=== PATIENT | male | born 1980 | race Caucasian/White ===

== ENCOUNTER 2018-01-17 11:52 | Day surgery (SDC) | payer OTHER ==
[2018-01-10 11:15] VITALS: BMI 25.7
--- NOTE | 2018-01-17 08:27 | P.GSHP ---
History of Present Illness H&P Date: 01/17/18 CHIEF COMPLAINT: Inguinal hernia, right. HISTORY OF PRESENT ILLNESS: The patient is a 52-year-old male who presents with a history of swelling and pain along the right groin. He's noted increased swelling including pain of the area. Now he presents for repair of his inguinal hernia. PAST MEDICAL HISTORY: Please see list. PAST SURGICAL HISTORY: Please see list. MEDICATIONS: Please see list. ALLERGIES: Please see list. SOCIAL HISTORY: No illicit drug use FAMILY HISTORY: No reports of Crohn disease or ulcerative colitis. REVIEW OF ORGAN SYSTEMS: CONSTITUTIONAL: No reports of fevers or chills. No reports of weight loss despite prior attempts. GI: Denies any blood in stools or constipation. PHYSICAL EXAM: VITAL SIGNS: Stable GENERAL: Well-developed pleasant male in no acute distress. HEENT: No scleral icterus. Extraocular movements grossly intact. Moist buccal mucosa. NECK: Supple without lymphadenopathy. CHEST: Unlabored respirations. Equal bilateral excursions. CARDIOVASCULAR: Regular rate and rhythm. Distal 2+ pulses. ABDOMEN: Soft, nondistended. No peritoneal signs. Palpable defect of the right groin. MUSCULOSKELETAL: No clubbing, cyanosis, or edema. ASSESSMENT: 1. Inguinal hernia, right PLAN: 1. Recommend proceeding with a robotic inguinal repair with mesh with possible bilateral approach. 2. Benefits and risks of surgical intervention was discussed including possibility of open technique. 3. DVT prophylaxis. 4. Antibiotic prophylaxis. Past Medical History Past Medical History: No Reported History Additional Past Medical History / Comment(s): Ing. Hernia History of Any Multi-Drug Resistant Organisms: None Reported Past Surgical History: Ear Surgery Additional Past Surgical History / Comment(s): tubes in ears as child; wisdom teeth extraction Past Anesthesia/Blood Transfusion Reactions: No Reported Reaction Smoking Status: Current every day smoker - Past Family History Mother Family Medical History: No Reported History Medications and Allergies Home Medications Medication Instructions Recorded Confirmed Type No Known Home Medications 01/10/18 01/10/18 History Allergies Allergy/AdvReac Type Severity Reaction Status Date / Time No Known Allergies Allergy Verified 01/10/18 11:10
[~2018-01-17 11:52] MED LIST: DEXAMETHASONE SOD PHOSPHATE 10 MG/ML 1 ML VIAL IV ONE; HEPARIN SODIUM,PORCINE 5,000 UNIT/ML 1 ML VIAL SQ ONE; LIDOCAINE 1% 20 ML VIAL (10MG/ML) FOR IV START INTRADERMA PRN; MIDAZOLAM 2 MG/2 ML VIAL IV PRN; ONDANSETRON 4 MG/2 ML VIAL IVP ONE; ceFAZolin IN SWFI 2 GM/20 ML SYRINGE IVP ONE; fentaNYL (PF) 50 MCG/ML 2 ML AMP IV PRN
[2018-01-17] MEDS: LACTATED RINGERS 1,000 ML IV SCH (13:39)
[2018-01-17] MEDS ORDERED: LIDOCAINE 1% 20 ML VIAL (10MG/ML) FOR IV START INTRADERMA ONE (13:39)
[2018-01-17] MEDS ORDERED: HYDROmorphone (PF) 1 MG/ML ONE (14:33)
[2018-01-17] MEDS ORDERED: SUCCINYLCHOLINE CHLORIDE 100 MG/5 ML SYR IV ONE (14:33)
[2018-01-17] MEDS ORDERED: LIDOCAINE 1% INJ 10MG/ML (20 ML MDV) ONE (14:33)
[2018-01-17] MEDS ORDERED: KETOROLAC 30 MG/ML 1 ML VIAL ONE (14:33)
[2018-01-17] MEDS ORDERED: MIDAZOLAM 2 MG/2 ML VIAL ONE (14:33)
[2018-01-17] MEDS ORDERED: fentaNYL (PF) 50 MCG/ML 2 ML AMP ONE (14:33)
[2018-01-17] MEDS ORDERED: PROPOFOL 10 MG/ML 20 ML VIAL IV ONE (14:33)
[2018-01-17] MEDS ORDERED: ROCURONIUM BROMIDE 10 MG/ML 10 ML VIAL IV ONE (14:33)
[2018-01-17] MEDS ORDERED: BUPIVACAIN-EPI 0.5%-1:200,000 30 ML VIAL SQ ONE ×2 (14:49→14:54)
--- NOTE | 2018-01-17 15:58 | P.OP ---
Date of Procedure: 01/17/18 Description of Procedure: SURGEON: ANUSHA FRANCO MD PREOPERATIVE DIAGNOSES: 1. Initial right inguinal hernia. POSTOPERATIVE DIAGNOSES: 1. Initial right inguinal hernia. OPERATION: 1. Robotic-assisted [employer] laparoscopic right inguinal hernia repair with mesh, 11.[address] ANESTHESIA: General with local anesthetic ESTIMATED BLOOD LOSS: 5 mL. SPECIMENS REMOVED: Right inguinal hernia sac COMPLICATIONS: None. INDICATIONS: The patient is a 37-year-old gentleman who presents with history of right groin pain. Now presents for definitive surgical intervention. Laparoscopic versus open and robotic approaches were discussed. Benefits and risks including bleeding, infection, injury to the vas deferens as well as sterility and chronic groin pain were reviewed. Placement of mesh was also described. Informed consent was obtained. DESCRIPTION: In the preoperative area, the patient was marked with indelible marker along the inguinal hernia. The patient was brought to the operating room and initially laid in supine position. The abdomen had been prepped and draped in standard sterile fashion. Ioban draping was also placed. Prior to incision, a timeout protocol was confirmed with surgical team regarding patient's name including procedures to be performed and location along the right groin. Initial positioning for the robotic assisted ports were selected whereby 20 cm superior to the target anatomy, 0 degree 5 mm laparoscopic trocar entry was performed at the left upper quadrant. The abdomen was insufflated to 15 mmHg which he had tolerated well. Diagnostic laparoscopy demonstrated a direct inguinal hernia along the right groin. Next, along the epigastrium, 8 mm robot trocar was placed. An 8-mm robotic trocar was placed under direct visualization at the right upper quadrant. An 8 mm port was placed at the left upper quadrant. All trocars were positioned between 8 to 10-cm apart from each other. The [employer] XI robot was primed, draped, prepared for docking along the left side of the patient. I then went to the [employer] console. The administrative assistant data entry was at bedside for exchange of the robot arms and equipment. No hernia was identified along the left groin. The right inguinal hernia sac was evaginated whereby the peritoneum was scored using Endo scissors with cautery. Once completely reduced into the abdominal cavity, the peritoneal sac of the hernia was stripped along a direct inguinal hernia. The sac was resected and then passed off for further pathological analysis. The size of the hernia defect was 2 cm with intraoperative films obtained. Using a 2-0 VLOC, the peritoneal defect of the right inguinal hernia site was closed using a running suture. The defect was found to be completely closed with complete reduction of the right direct inguinal hernia was confirmed. As an onlay, an 11.[address] mesh by [employer] was initially cut in half and entered into the abdominal cavity via the 8 mm trocar. The mesh was tacked to the pelvis using 2-0 VLOC 9-inch length sutures. The robot was undocked from the patient's bedside. I then rescrubbed into the case. Insufflation was released from the abdominal cavity and all instruments were removed from the abdominal cavity. The rest of incisions were reapproximated using 4-0 Monocryl in a running subcuticular fashion. Local anesthetic was placed along the incision including for a right groin block. Incisions were cleansed using dilute hydrogen peroxide. Liquid glue was applied to the skin. At the end of the procedure, the needle, sponge and instrument counts had been verified correct by the preparatory technician. The patient had tolerated the procedure well and was taken to the postanesthesia care unit in stable condition. Console time 29 minutes Plan - Discharge Summary New Discharge Prescriptions: No Action No Known Home Medications Discharge Medication List No Known Home Medications 01/10/18 [History]
[2018-01-17 16:14] VITALS: TEMP 97.8
[2018-01-17] MEDS ORDERED: TAMSULOSIN 0.4 MG CAP.ER.24H PO STA (16:33)
[2018-01-17 18:01] VITALS: BP 120/73; PULSE 78; RESP 18
== END 2018-01-17 18:10 | disposition home or self-care (01) ==
LOC: OR 11:52
PROVIDERS: ATTEND Surgery Plastic and Reconstructive Surgery
DX: K40.90 Unilateral inguinal hernia, without obstruction or gangrene, not specified as recurrent (principal); F17.210 Nicotine dependence, cigarettes, uncomplicated
CPT/HCPCS: 49650; S2900; 88302